=== PATIENT | female | born 1935 | race Caucasian/White ===

== ENCOUNTER 2017-06-21 16:50 | Inpatient (IN) | payer MEDICARE, BC ==
[2017-06-21] MEDS ORDERED: Dextrose 50% Abboject 50 ML SYRINGE SLOW IVP PRN (19:34)
[2017-06-21] MEDS ORDERED: hydrALAZINE 20 MG/ML VIAL SLOW IVP PRN (19:34)
[2017-06-21] MEDS ORDERED: Dextrose 5% in Water 1,000 ML IV PRN (19:34)
[2017-06-21] MEDS ORDERED: Enoxaparin Sodium 100 MG/ML SYRINGE SC SCH (20:00)
[2017-06-21] MEDS: Metoprolol Tartrate 25 MG TAB PO SCH (20:17)
[2017-06-21] MEDS: Famotidine 20 MG TAB PO SCH (20:17)
[2017-06-21] MEDS: Nitroglycerin 2% Ointment 1 INCH/1 GM Packet TOP SCH (20:17)
[2017-06-21 20:37] LABS: Troponin I 1.836 ng/mL (< 0.028)
[2017-06-21 21:28] VITALS: BMI 38.4
--- NOTE | 2017-06-21 21:34 | HP ---
DATE OF ADMISSION: 06/21/2017 CHIEF COMPLAINT: Weakness. HISTORY OF PRESENT ILLNESS: Ms. Mathew is a pleasant 82-year-old female, who went to the [facility] after having an episode of elevated blood pressure. She woke up this morning with a bifrontal throbbing headache and did not really feel good. [facility] arrived to see her and upon evaluation, she had an elevated blood pressure and felt that she had some facial droop, and noted was left to right side. She subsequently was recommended to go to the emergency department via EMS, but she refused and wait ed for her daughter get there about an hour and a half later. When her daughter arrived, her daught er noted no facial droop and whatever was there seemed to have resolved, but she continued to be hyp ertensive and was taken to the emergency department in [place]. There, she was found to have continued high blood pressure, but no facial droop. She had global wea kness, but no specific neurologic findings. Lab work there was largely unremarkable except for a tr oponin of 1.485, and she was sent here for further workup and evaluation. She denies any chest pain or difficulty breathing, no nausea, vomiting or diaphoresis, no fevers or chills, no cough or sputum production. Labs are otherwise unremarkable and she has been hypertensive in our ER. PAST MEDICAL HISTORY: 1. Vertigo, primarily turning head to the left. 2. Chronic back pain. 3. Diabetes mellitus type 2. 4. Hyperlipidemia. 5. Hypertension. 6. Degenerative joint disease. 7. Recurrent UTIs. PAST SURGICAL HISTORY: 1. Bilateral TKA left in 2006, right in 1997. She had a right total hip arthroplasty originally in 1988 in [place] and a revision in [address] Norris. She had bilateral shoulder replacement on the left in [address] Norris and on the right in 2007 she thinks in [place]. 2. Left femur fracture repair x2. Initial renetta was placed in 06/2016 with a replacement in 11/2016. Her last follow up in 05/2017 or 04/2017 showed a bone healing. 3. Hysterectomy, she thinks in 1970. HOME MEDICATIONS: 1. Amlodipine 5 mg p.o. daily. 2. Effexor 25 mg daily. 3. Pravachol 40 mg p.o. at bedtime. 4. Oxybutynin 5 mg p.o. t.i.d. 5. Lisinopril 20 mg p.o. at bedtime. 6. Gabapentin 300 mg p.o. at bedtime. 7. Tramadol 50 mg p.o. p.r.n. pain. 8. Aspirin 81 mg daily. 9. NPH insulin 40 units subcutaneously at bedtime and regular insulin 15 units before meals. ALLERGIES: IBUPROFEN causes GI bleeding. FAMILY HISTORY: Negative for clotting or bleeding disorder, no immune function. SOCIAL HISTORY: Negative for habits x3. She does live alone and is in 2010. REVIEW OF SYSTEMS: A 10-point review of systems was performed, negative for other systems except as stated as per HPI. CODE STATUS: Discussed with the patient. She does wish to be a FULL CODE. Her daughter is present who helps to make medical decisions, but is not officially medical power of compliance attorney. PHYSICAL EXAMINATION: VITAL SIGNS: Temperature 98.1, pulse 68, blood pressure 184/72, respiratory rate 18, satting 95% on room air. GENERAL: She is awake. She is alert. She is oriented x3. She is an obese white female, appears t o be in no distress. HEENT: Normocephalic, atraumatic. Pupils are equal and reactive bilaterally. Mucous membranes [address]. There is no visible lesion, no thrush. NECK: Supple. She has no lymphadenopathy, no JVD, no thyromegaly with normal carotid upstrokes. RESPIRATORY: Lungs are clear to auscultation bilaterally. She has no wheezes, no rales, no rhonchi . She has good air movement and symmetrical chest excursion. She has no prolonged expiratory phase . CARDIOVASCULAR: Normal S1, S2, no S3 or S4. She has a 2/6 systolic ejection murmur at the right up per sternal border. ABDOMEN: Obese, it is nontender, nondistended, no masses, no organomegaly. EXTREMITIES: No cyanosis, no clubbing, no edema with 2+ peripheral pulses. SKIN: Warm, moist, and well perfused. I do not appreciate any edema. She has no rashes or lesions . MUSCULOSKELETAL: Normal to inspection without any inflamed joints. Her previous orthopedic incisio ns are clean, dry, and intact and well healed. She has no palpable joint effusions. NEUROLOGIC: Cranial nerves II through XII are grossly intact without any focal neurologic defect. She has 5/5 strength. Normal speech and normal memory and recognition. LABORATORY DATA: A comprehensive metabolic profile showed normal electrolytes, bicarbonate 29, BUN 15, creatinine 0.87, and glucose 152. Calcium was 10.5, potassium was 4.2. Liver function within n ormal limits. White blood cell count of 8.3, hemoglobin of 14.9, hematocrit of 46.4 and platelets o f 209,000. INR was normal at 0.9. Urinalysis was negative. Chest x-ray showed no acute cardiopulmonary disease. Brain CT from the outside facility by my reading interpretation showed no acute cranial abnormalitie s. With limitations obvious of a noncontrast study. ASSESSMENT AND PLAN: 1. Hypertensive urgency: The patient with increased troponin, and possible neurologic deficits. I think this is all due to her hypertensive episode. I do not believe she had a transient ischemic a ttack. At this point, we will place her on cardioprotective medicines for her heart disease includi ng nitro paste, metoprolol, oxygen, and p.r.n. hydralazine for systolic pressure greater than 170. We will watch her pressure overnight and continue her regular home medications. 2. Non-ST elevation myocardial infarction: I think secondary to myocardial strain. Troponin is 1. 485, at the time that I saw her. Prior to being transferred to the floor, her repeat troponin was a lmost 1.8. We will consult Cardiology and keep her on cardioprotective medications and keep her blo od pressure controlled. 3. Possible facial droop: I believe this is likely secondary to hypertensive encephalopathy: Seem s to have resolved as her pressure was slightly improved and has not recurred with her systolic bloo d pressure of 184 here. She gets as high as systolic 201, we will work to keep her blood pressure c ontrolled tonight. 4. Diabetes mellitus type 2. We will hold her regular insulins for now, we will place her on slidi ng scale insulin at moderate dosing and will use Humalog 15 units subcutaneously before meals. We w ill hold her long-acting until we know what Cardiology's plan is. We will make her n.p.o. after mid night in anticipation of possible procedures. 5. Hypertension as above. 6. Hyperlipidemia, on Pravachol. We will continue. 7. Chronic vertigo: Currently asymptomatic, has not had a problem in some time. 8. Chronic back pain. 9. Deep venous thrombosis prophylaxis: The patient will be placed on full dose Lovenox for her non -ST elevation myocardial infarction and this is already anticoagulated. 10. We will place her on Pepcid b.i.d. for gastrointestinal prophylaxis.
[2017-06-21] MEDS: HYDROcodone/Acetaminophen 5/325 mg Tablet PO PRN (22:39)
[2017-06-22] MEDS ORDERED: Nitroglycerin 0.4 MG TAB (25 Tab Bottle) SL PRN (02:28)
[2017-06-22] MEDS ORDERED: Nitroglycerin 0.4 MG TAB (25 Tab Bottle) ONE (02:28)
[2017-06-22] MEDS: HYDROcodone/Acetaminophen 10/325 mg Tablet PO PRN (02:35)
[2017-06-22] MEDS: Nitroglycerin 2% Ointment 1 INCH/1 GM Packet TOP SCH ×2 (04:14→11:32)
[2017-06-22 05:45] LABS: #Basophils 0.1 thou/uL (0.0-0.2); #Eosinphils 0.3 thou/uL (0.0-0.7); #Lymphocytes 2.4 thou/uL (1.20-3.40); #Monocytes 0.6 thou/uL (0.11-0.59); #Neutrophils 3.5 thou/uL (1.40-6.50); %Basophils 1.1 % (0.0-1.0); %Eosinophils 4.3 % (0.0-10.0); %Lymphocytes 35.2 % (21.0-51.0); %Monocytes 8.2 % (0.0-10.0); Hematocrit 39.9 % (36.0-47.0); Mean Platelet Volume 6.9 fL (7.4-10.4); Red Blood Cell (RBC) Count 4.46 mill/uL (4.20-5.40); White Blood Cell (WBC) Count 6.8 thou/uL (4.8-10.8)
[2017-06-22 05:59] LABS: Anion Gap 9 mmol/L (10-20); BUN (Urea Nitrogen) 13 mg/dL (9.8-20.1); Calc. Creatinine Clearance 84 mL/min (70-130); Calcium 9.2 mg/dL (7.8-10.44); Carbon Dioxide 29 mmol/L (23-31); Chloride 102 mmol/L (98-107); Cholesterol 163 mg/dl (< 200 Desired); Estimated GFR-MDRD 69; LDL Cholesterol, Calculated 80 mg/dL; Magnesium 1.8 mg/dL (1.6-2.6)
[2017-06-22 06:19] LABS: Critical Call Chem Troponin I RESULT DECREASING; Troponin I 1.171 ng/mL (< 0.028)
[2017-06-22] MEDS: Metoprolol Tartrate 25 MG TAB PO SCH ×2 (07:54→20:33)
[2017-06-22] MEDS: Famotidine 20 MG TAB PO SCH ×2 (07:55→20:33)
[2017-06-22] MEDS ORDERED: Aspirin 325 mg Enteric Coated Tablet PO SCH (09:00)
[2017-06-22] MEDS ORDERED: Enoxaparin Sodium 100 MG/ML SYRINGE SC SCH (09:00)
[2017-06-22] MEDS: Insulin Regular 300 UNITS/3 ML VIAL SC PRN ×2 (11:41→17:13)
--- NOTE | 2017-06-22 12:01 | PDOC.PN ---
- Subjective Encounter Start Date: 06/22/17 Encounter Start Time: 11:45 Subjective: f/u for HTN emergency and ? TIA and NSTEMI. BP improved this am. -: Some nausea earlier but mainly hungry after not eating for 24h. Last -: stress test 10 years ago. - Objective Resuscitation Status: Resuscitation Status FULL:Full Resuscitation MAR Reviewed: Yes Vital Signs & Weight: Vital Signs (12 hours) Temp Pulse Resp BP Pulse Ox 06/22/17 11:45 98.1 F 55 L 20 128/58 L 93 L 06/22/17 09:37 53 L 06/22/17 08:50 98.1 F 75 20 167/72 H 97 06/22/17 07:49 98.1 F 75 20 192/79 H 97 06/22/17 04:02 98.0 F 61 16 131/60 97 Weight Weight 210 lb I&O: 06/21/17 06/22/17 06/23/17 06:59 06:59 06:59 Intake Total 720 Balance 720 Result Diagrams: 06/22/17 05:11 06/22/17 05:10 Additional Labs: Accuchecks 06/22/17 06/22/17 06/21/17 11:24 06:07 20:36 POC Glucose 272 H 248 H 126 H Radiology Reviewed by me: Yes (CT Brain - no acute process) EKG Reviewed by me: Yes (Tele - SR in 60's) Phys Exam - Physical Examination Constitutional: NAD flushed HEENT: PERRLA, oral pharynx no lesions Neck: no JVD, supple Respiratory: no wheezing, clear to auscultation bilateral Cardiovascular: RRR Gastrointestinal: soft, non-tender, no distention, positive bowel sounds Musculoskeletal: no edema, pulses present Neurological: normal sensation, moves all 4 limbs Psychiatric: A&O x 3 Skin: normal turgor, cap refill <2 seconds Dx/Plan (1) Hypertensive emergency Code(s): I16.1 - HYPERTENSIVE EMERGENCY Status: Acute Comment: Resolved, resume home BP regimen and monitor clinically (2) Hypertensive encephalopathy Code(s): I67.4 - HYPERTENSIVE ENCEPHALOPATHY Status: Acute Comment: Resolved , resume home BP meds (3) NSTEMI (non-ST elevated myocardial infarction) Code(s): I21.4 - NON-ST ELEVATION (NSTEMI) MYOCARDIAL INFARCTION Status: Acute Comment: ? NSTEMI vs demand state due to HTN emergency, consult Cardiology for recommendations, check 2D echo (4) Diabetes mellitus, type II, insulin dependent Code(s): E11.9 - TYPE 2 DIABETES MELLITUS WITHOUT COMPLICATIONS; Z79.4 - CUSTODIAL (CURRENT) USE OF INSULIN Status: Chronic Comment: Resume Lantus 40u sc HS, ISS, ADA - Plan clinical social worker, DVT proph w/SCDs Stable currently -: 2D echo today -: Await Cardiology evaluation -: D/C Nitro paste -: Resume Pravachol 40mg HS * D/C Lovenox
[2017-06-22] MEDS ORDERED: traMADol HCl 50 MG TAB PO PRN (12:04)
[2017-06-22 13:09] LABS: Critical Call Chem Troponin I RESULT DECREASING; Troponin I 0.861 ng/mL (< 0.028)
[2017-06-22] MEDS ORDERED: Sodium Chloride 0.9% 1,000 ML IV SCH (14:15)
[2017-06-22] MEDS ORDERED: Communication Order-Pharmacy FS SCH (14:15)
[2017-06-22] MEDS: Oxybutynin 5 MG TAB PO SCH ×2 (15:11→20:32)
[2017-06-22] MEDS: Ondansetron ODT 4 MG TAB PO PRN (17:12)
[2017-06-22] MEDS: Acetaminophen 325 MG TAB PO PRN (17:20)
[2017-06-22] MEDS: traZODone HCl 150 MG TAB PO SCH (20:32)
[2017-06-22] MEDS: Lisinopril 20 MG TAB PO SCH (20:33)
[2017-06-22] MEDS: Atorvastatin Calcium 20 MG TAB PO SCH (20:33)
[2017-06-22] MEDS: Gabapentin 300 MG CAP PO SCH (20:33)
[2017-06-22] MEDS: HYDROcodone/Acetaminophen 5/325 mg Tablet PO PRN (20:33)
[2017-06-22] MEDS: Insulin Detemir 100 UNITS/ML 40 UNITS in Pre-Filled Syringe SC SCH (20:34)
--- NOTE | 2017-06-22 20:47 | CON ---
DATE OF CONSULTATION: 06/22/2017 HISTORY OF PRESENT ILLNESS: Ashlee Mathew is an 82-year-old white female with multiple medical problems who just went home in February after second operation on fractured left leg. Yesterday, she stated that she woke up at 1:00 a.m. with a headache and later in the day felt good enough to do some work around the house such as washing and cleaning. She then around 11:00 a.m. again started feeling poorly. Her blood pressure was elevated with systolics in the 160s and her physical therapist came by and thought that she had facial droop and recommended she go to the emergency room. She did not until her daughter came many hours later. Her daughter did not think that she had a facial droop, but she continued to feel poorly, so she went to the emergency room in [place]. There, she was found to have an elevated troponin and she was transferred here for further evaluation. At no time yesterday did she have any chest pain, shortness of breath, nausea, vomiting or diaphoresis. She has never had any specific cardiac problems in the past from her recollection, although in looking through the medical record, she has been hospitalized for diuresis. PAST MEDICAL HISTORY: Hypertension, diabetes, hypercholesterolemia, degenerative joint disease with multiple joint replacements, recurrent UTIs, chronic back pain, vertigo. She has had 4 episodes of gastrointestinal bleeding requiring hospitalization all due to taking ibuprofen. She states she has undergone endoscopies in the past with no specific etiology being found. PAST SURGICAL HISTORY: Bilateral total knee replacements, bilateral shoulder replacements, right hip replacement x2. In 06/2016, she had a distal left femur fracture and underwent ORIF at [facility]. There apparently was poor healing and she underwent a revision in 11/2016 and this is now healed. She also has had hysterectomy. MEDICATIONS: Effexor 25 mg daily, Pravachol 40 mg at bedtime, amlodipine 5 mg daily, oxybutynin 5 mg t.i.d., lisinopril 20 mg at bedtime, gabapentin 300 at bedtime, tramadol 50 mg p.r.n., aspirin 81 daily, NPH insulin 40 units at bedtime and regular insulin 15 units before meals. ALLERGIES: IBUPROFEN causes gastrointestinal bleeding as noted above. SOCIAL HISTORY: She has never smoked. She does not drink. FAMILY HISTORY: One of her brothers had sudden in his 40s. REVIEW OF SYSTEMS: Twelve-point review of systems otherwise unremarkable. PHYSICAL EXAMINATION: VITAL SIGNS: Blood pressure 128/58 and pulse of 55. HEENT: PERRL. NECK: Supple. LUNGS: Chest is clear. CARDIAC: S1 and S2 normal, without any S3, S4 or murmurs. Carotid upstroke was normal without bruits. ABDOMEN: Obese. Normal bowel sounds. No tenderness. EXTREMITIES: Revealed no clubbing, cyanosis or edema. NEUROLOGIC: Grossly intact. SKIN: Warm and dry. LABORATORY AND IMAGING DATA: EKG reveals normal sinus rhythm, nonspecific ST-T wave changes, no acute changes are present. Hemoglobin 13.0, hematocrit 39.9, white count 6800, platelets 207,000. INR 0.9. Sodium 136, potassium 4.3, chloride 102, carbon dioxide 29, BUN 13, creatinine 0.80, glucose 126 up to 272. CK-MB 14.5. Troponin I peak is 1.836, cholesterol 163, triglycerides 238 , HDL 37 and LDL 80. IMPRESSION: 1. [id number] elevation myocardial infarction. This also may be related to demand ischemia from her hypertension; however, according to the patient, her blood pressure was not that significantly elevated. On arrival to [place] , her blood pressure was 187/68. 2. Probable hypertensive encephalopathy with questionable facial droop at one point in time. 3. Hypertension. 4. Hypercholesterolemia, poor control with LDL of 80 in a diabetic. 5. Diabetes. 6. Positive family history. 7. Obesity. 8. Multiple joint replacements. 9. History of gastrointestinal bleeding when on IBUPROFEN. She does take aspirin 81 chronically. RECOMMENDATIONS: It was recommended that Ms. Mathew undergo cardiac catheterization with her elevated troponin and elevated CK-MB and multiple cardiac risk factors. Risk of cardiac catheterization were discussed including , myocardial infarction, dye reaction, vascular injury, CVA, transfusion, limb loss, renal loss, etc. Also, risk of PTCA and stent were discussed including , myocardial infarction, emergent CABG, restenosis, stent thrombosis, vessel perforation, etc. We discussed bare metal stent versus drug- eluting stents. With her history of recurrent gastrointestinal bleeding, I would only place a bare metal stent to limit the amount of time that she has exposed to Plavix. Echocardiogram will also be performed. Change to Atorvastatin 20 for better cholesterol control. [facility]
[2017-06-22] MEDS ORDERED: Non-Formulary Item 1 EACH (Insulin Glargine,Hum.Rec.Anlog 40 UNIT) SQ SCH (21:00)
[2017-06-22] MEDS ORDERED: Pravastatin Sodium 40 MG TAB PO SCH (21:00)
[2017-06-23] MEDS: HYDROcodone/Acetaminophen 10/325 mg Tablet PO PRN ×2 (00:42→20:56)
[2017-06-23] MEDS: Ondansetron ODT 4 MG TAB PO PRN (00:58)
[2017-06-23] MEDS: Oxybutynin 5 MG TAB PO SCH ×3 (05:22→20:53)
[2017-06-23] MEDS: Metoprolol Tartrate 25 MG TAB PO SCH ×2 (05:22→20:53)
[2017-06-23] MEDS: Amlodipine 5 MG TAB PO SCH (05:22)
[2017-06-23] MEDS: Famotidine 20 MG TAB PO SCH ×2 (05:22→20:53)
[2017-06-23] MEDS: Venlafaxine HCl 25 MG TAB PO SCH (05:23)
[2017-06-23] MEDS ORDERED: Sodium Chloride 0.9% 1,000 ML IV SCH ×2 (06:00→11:15)
[2017-06-23] MEDS ORDERED: Lidocaine 1% (PF) 30 ML VIAL ONE (07:41)
[2017-06-23] MEDS ORDERED: Heparin 10,000 UNITS/1 ML VIAL ONE (07:43)
[2017-06-23] MEDS ORDERED: Fentanyl 100 MCG/2 ML VIAL ONE (10:33)
[2017-06-23] MEDS ORDERED: Midazolam HCl 2 mg/2 ml Vial ONE (10:33)
[2017-06-23] MEDS ORDERED: Protamine Sulfate 50 MG/5 ML VIAL ONE (10:46)
[2017-06-23] MEDS ORDERED: Nitroglycerin 0.4 MG TAB (25 Tab Bottle) SL PRN (11:05)
[2017-06-23] MEDS ORDERED: traMADol HCl 50 MG TAB PO PRN (11:05)
[2017-06-23] MEDS ORDERED: Acetaminophen/Codeine 30-300mg Tablet PO PRN ×2 (11:05)
[2017-06-23] MEDS ORDERED: Sodium Chloride 0.9% 200 ML IV PRN (11:15)
--- NOTE | 2017-06-23 14:51 | PDOC.PN ---
- Subjective Encounter Start Date: 06/23/17 Encounter Start Time: 14:35 Subjective: f/u NSTEMI with 3v CAD by [facility]. HTN encephalopathy resolved. Plan for CABG -: due to extent of CAD. No CP, SOB. - Objective Resuscitation Status: Resuscitation Status FULL:Full Resuscitation MAR Reviewed: Yes Vital Signs & Weight: Vital Signs (12 hours) Temp Pulse Resp BP BP Pulse Ox 06/23/17 11:05 97.9 F 60 18 133/63 133/63 94 L 06/23/17 08:45 98.2 F 56 L 16 95 06/23/17 08:00 98.2 F 56 L 16 134/60 95 06/23/17 05:22 80 150/67 H 06/23/17 05:15 98.1 F 80 18 150/67 H 93 L Weight Weight 210 lb I&O: 06/22/17 06/23/17 06/24/17 06:59 06:59 06:59 Intake Total 720 1440 Output Total 1 Balance 720 1439 Result Diagrams: 06/22/17 05:11 06/22/17 05:10 Additional Labs: Accuchecks 06/23/17 06/23/17 06/22/17 11:59 05:35 20:32 POC Glucose 171 H 240 H 229 H 06/22/17 17:06 POC Glucose 292 H Radiology Reviewed by me: Yes (2D echo - EF 55-60%, mod MR, diast dysfxn) EKG Reviewed by me: Yes (Tele - SR in 70's) Phys Exam - Physical Examination Constitutional: NAD HEENT: PERRLA, oral pharynx no lesions Neck: no JVD, supple Respiratory: no wheezing, clear to auscultation bilateral Cardiovascular: RRR Gastrointestinal: soft, non-tender, no distention, positive bowel sounds Musculoskeletal: no edema, pulses present Neurological: normal sensation, moves all 4 limbs Psychiatric: A&O x 3 Skin: normal turgor, cap refill <2 seconds Dx/Plan (1) Hypertensive emergency Code(s): I16.1 - HYPERTENSIVE EMERGENCY Status: Acute Comment: Resolved, resume home BP regimen and monitor clinically (2) Hypertensive encephalopathy Code(s): I67.4 - HYPERTENSIVE ENCEPHALOPATHY Status: Acute Comment: Resolved , resume home BP meds (3) NSTEMI (non-ST elevated myocardial infarction) Code(s): I21.4 - NON-ST ELEVATION (NSTEMI) MYOCARDIAL INFARCTION Status: Acute Comment: NSTEMI with [facility] showing 3v CAD, plan for CABG per Cardiology, ASA, Lipitor, B-jeanette (4) Diabetes mellitus, type II, insulin dependent Code(s): E11.9 - TYPE 2 DIABETES MELLITUS WITHOUT COMPLICATIONS; Z79.4 - CLINICAL LABORATORY DIRECTOR (CURRENT) USE OF INSULIN Status: Chronic Comment: Resume Lantus 40u sc HS, ISS, ADA - Plan plan discussed w/ family, social media editor, out of bed/ambulate, DVT proph w/SCDs Stable overall -: Continue ASA, Lipitor, Metoprolol -: Plan for CABG -: PT for mobilization -: AM lab: BMP * .
[2017-06-23] MEDS ORDERED: Communication Order-Pharmacy FS ONE (17:51)
[2017-06-23] MEDS: Insulin Regular 300 UNITS/3 ML VIAL SC PRN (17:53)
[2017-06-23] MEDS: traZODone HCl 150 MG TAB PO SCH (20:53)
[2017-06-23] MEDS: Atorvastatin Calcium 20 MG TAB PO SCH (20:53)
[2017-06-23] MEDS: Gabapentin 300 MG CAP PO SCH (20:53)
[2017-06-23] MEDS: Insulin Detemir 100 UNITS/ML 40 UNITS in Pre-Filled Syringe SC SCH (20:53)
[2017-06-23] MEDS: Lisinopril 20 MG TAB PO SCH (20:53)
--- NOTE | 2017-06-23 22:42 | CON ---
DATE OF CONSULTATION: 06/23/2017 REASON FOR CONSULTATION: Evaluation for coronary artery bypass surgery. PERTINENT HISTORY: The patient is an 82-year-old female who presented 2 days ago with hypertensive urgency at which time she ruled in for a [id number] elevation TN. Peak troponin I was 1.84. Transthoracic echo demonstrated preserved left ventricular systolic function with ejection fraction of 55% to 60 % with diastolic dysfunction, moderate MR, and mitral annular calcification. Today she underwent cardiac catheterization, which demonstrated severe 3-vessel disease. Ejection fraction at catheterization was 55% with LVEDP of 16. The patient was subsequently referred for coronary artery bypass surgery. PAST MEDICAL HISTORY: 1. Insulin-dependent diabetes. 2. Hypertension. 3. Dyslipidemia. 4. Obesity. 5. Peripheral neuropathy. 6. Vertigo. 7. Degenerative joint disease. 8. Depression. 9. Chronic back pain. 10. Urinary incontinence/frequent UTIs. 11. GI bleeds related to nonsteroidal anti-inflammatory use requiring multiple transfusions. PAST SURGICAL HISTORY: 1. Bilateral shoulder replacements. 2. Bilateral knee replacements. 3. Right hip replacement x2. 4. ORIF left femur fracture. 5. Hysterectomy. ALLERGIES: IBUPROFEN and PHENERGAN. SOCIAL HISTORY: Nonsmoker. Nondrinker. FAMILY HISTORY: Significant for a brother dying in his 40s of a massive TN. REVIEW OF SYSTEMS: No history of kidney or liver disease or claudication. The patient, however, does not walk to any substantial degree and does require a walker for assistance with ambulation. Prior to her presentation, she had no prior history of angina or TN. LABORATORY AND X-RAY: Hemoglobin 13.0. Platelet count 207,000. Creatinine 0.80. Chest x-ray demonstrates an elevated right hemidiaphragm with normal appearing heart size. CURRENT MEDICATIONS: Insulin detemir 40 units at bedtime, Norvasc 5 mg daily, aspirin 81 mg daily, Lipitor 20 mg at bedtime, Pepcid 20 mg b.i.d., gabapentin 300 mg q.p.m., lisinopril 20 mg at bedtime, metoprolol 25 mg b.i.d., oxybutynin 5 mg t.i.d., Effexor 25 mg daily, and trazodone 150 mg at bedtime. PHYSICAL EXAMINATION: VITAL SIGNS: Height 5 feet 2 inches, weight 210 pounds, blood pressure 140/63, heart rate 58, temperature 98.3. GENERAL: Obese female, in no acute distress. She is fully oriented. HEENT: Grossly unremarkable. NECK: Without JVD or adenopathy. LUNGS: Clear with good inspiratory effort. HEART: Sinus bradycardia without murmur or rub. ABDOMEN: Soft and nontender, without palpable mass. EXTREMITIES: Without appreciable edema. VASCULAR: Palpable radial, femoral, and popliteal pulses bilaterally. No carotid bruits were appreciated. Abdominal aorta is nonpalpable. NEUROLOGIC: No focal deficits. IMPRESSION: [id number] elevation myocardial infarction, severe three- vessel coronary artery disease, and preserved left ventricular systolic function. RECOMMENDATIONS: Coronary artery bypass surgery to which the patient is in agreement following discussion with her referring concrete bucket loader and myself. The indications, benefits, alternatives, and risks were explained in detail to the patient and present family members. At this time, all questions were answered. Case will be tentatively scheduled for tomorrow morning pending a final family tele-conference this evening. CLAUDY
[2017-06-24] MEDS ORDERED: Vancomycin HCl 1.5 GM in Sodium Chloride 0.9% 250 ML 300 ML IVPB SCH (07:00)
[2017-06-24] MEDS ORDERED: CEFAZOLIN/Water 2 GM/20 ML SYRINGE SLOW IVP SCH (07:30)
[2017-06-24] MEDS ORDERED: CEFAZOLIN 2 GM in Sodium Chloride 0.9% 100 ML IVPB SCH (07:30)
--- NOTE | 2017-06-24 08:42 | PDOC.EVN ---
Event Note - Event Note Event Note: RN called - Pt has diarrhea - will add stool studies.
[2017-06-24] MEDS: Venlafaxine HCl 25 MG TAB PO SCH (08:56)
[2017-06-24] MEDS: Oxybutynin 5 MG TAB PO SCH ×3 (08:56→21:24)
[2017-06-24] MEDS: Famotidine 20 MG TAB PO SCH ×2 (08:57→21:23)
[2017-06-24] MEDS: Metoprolol Tartrate 25 MG TAB PO SCH ×2 (08:57→21:24)
[2017-06-24] MEDS: Amlodipine 5 MG TAB PO SCH (08:57)
[2017-06-24] MEDS ORDERED: Loperamide HCl 2 MG CAP PO PRN (09:08)
[2017-06-24] MEDS ORDERED: Loperamide HCl 2 MG CAP PO SCH (09:15)
[2017-06-24] MEDS: Acetaminophen 325 MG TAB PO PRN (09:18)
[2017-06-24] MEDS ORDERED: Metoprolol Tartrate 25 MG TAB PO SCH ×2 (13:27→13:30)
[2017-06-24] MEDS ORDERED: Lisinopril 20 MG TAB PO SCH (13:27)
[2017-06-24] MEDS ORDERED: Amlodipine 5 MG TAB PO SCH ×2 (13:27→13:30)
[2017-06-24] MEDS ORDERED: Lisinopril 5 MG TAB PO SCH ×2 (13:30→21:00)
--- NOTE | 2017-06-24 13:30 | PDOC.PN ---
- Subjective Encounter Start Date: 06/24/17 Encounter Start Time: 13:30 Subjective: f/u for CAD and TIA. Pt opting for med mgmt instead of CABG. Nsg reports -: diarrhea x multiple episodes this am. c/o some abd cramping and bloating. - Objective Resuscitation Status: Resuscitation Status DNR:Do Not Resuscitate MAR Reviewed: Yes Vital Signs & Weight: Vital Signs (12 hours) Temp Pulse Pulse Pulse Pulse Resp BP 06/24/17 12:45 49 L 06/24/17 11:49 97.8 F 45 L 16 06/24/17 11:46 44 L 06/24/17 09:36 53 L 56 L 54 L 100/50 L 06/24/17 08:57 60 06/24/17 08:00 97.5 F L 60 16 06/24/17 07:56 97.5 F L 60 16 06/24/17 04:00 97.9 F 58 L 12 BP BP BP Pulse Ox 06/24/17 12:45 100/49 L 06/24/17 11:49 75/37 L 92 L 06/24/17 11:46 82/43 L 06/24/17 09:36 105/53 L 107/51 L 06/24/17 08:57 06/24/17 08:00 94 L 06/24/17 07:56 127/62 94 L 06/24/17 04:00 99/50 L 95 Weight Weight 209 lb 12.8 oz I&O: 06/23/17 06/24/17 06/25/17 06:59 06:59 06:59 Intake Total 1440 2580 600 Output Total 1 Balance 1439 2580 600 Result Diagrams: 06/22/17 05:11 06/22/17 05:10 Additional Labs: Accuchecks 06/24/17 06/24/17 06/23/17 11:11 05:49 20:50 POC Glucose 165 H 94 236 H 06/23/17 16:53 POC Glucose 185 H EKG Reviewed by me: Yes (Tele - Sinus bradycardia in 40's) Phys Exam - Physical Examination Constitutional: NAD HEENT: PERRLA, oral pharynx no lesions Neck: no JVD, supple Respiratory: no wheezing, clear to auscultation bilateral Cardiovascular: RRR obese Gastrointestinal: soft, non-tender, no distention, positive bowel sounds Musculoskeletal: no edema, pulses present Neurological: normal sensation, moves all 4 limbs Psychiatric: A&O x 3 Skin: normal turgor, cap refill <2 seconds Dx/Plan (1) Hypertensive emergency Code(s): I16.1 - HYPERTENSIVE EMERGENCY Status: Acute Comment: Resolved, resume home BP regimen and monitor clinically (2) Hypertensive encephalopathy Code(s): I67.4 - HYPERTENSIVE ENCEPHALOPATHY Status: Acute Comment: Resolved , resume home BP meds (3) NSTEMI (non-ST elevated myocardial infarction) Code(s): I21.4 - NON-ST ELEVATION (NSTEMI) MYOCARDIAL INFARCTION Status: Acute Comment: NSTEMI with [facility] showing 3v CAD, ASA, Lipitor, B-jeanette, opting for med mgmt (4) Diabetes mellitus, type II, insulin dependent Code(s): E11.9 - TYPE 2 DIABETES MELLITUS WITHOUT COMPLICATIONS; Z79.4 - ASSISTED (CURRENT) USE OF INSULIN Status: Chronic Comment: Resume Lantus 40u sc HS, ISS, ADA (5) Hypotension Status: Acute Comment: ? etiology, potential iatrogenic or cardiogenic due to severe 3v CAD, decrease BP regimen, monitor clinical response (6) Sinus bradycardia Code(s): R00.1 - BRADYCARDIA, UNSPECIFIED Status: Acute Comment: Decrease Metoprolol 12.5mg BID, avoid AV kymberly blocking agents (7) Clostridium difficile diarrhea Code(s): A04.72 - ENTEROCOLITIS D/T CLOSTRIDIUM DIFFICILE, NOT SPCF RECUR Status: Suspected Comment: Start Flagyl 250mg TID, monitor clinically, start Florastor 250mg daily - Plan continue antibiotics, PT/OT, group social worker, out of bed/ambulate, DVT proph w/ SCDs Stable currently -: Start Flagyl 250mg TID -: Florastor 250mg daily -: Decrease dosing of all BP meds due hypotension and bradycardia -: Palliative care consult * AM lab: BMP, CBC
[2017-06-24] MEDS: metroNIDAZOLE 250 MG TAB PO SCH ×2 (14:38→21:24)
[2017-06-24] MEDS: Gabapentin 300 MG CAP PO SCH (21:23)
[2017-06-24] MEDS: Atorvastatin Calcium 20 MG TAB PO SCH (21:23)
[2017-06-24] MEDS: traZODone HCl 150 MG TAB PO SCH (21:24)
[2017-06-24] MEDS: Insulin Detemir 100 UNITS/ML 40 UNITS in Pre-Filled Syringe SC SCH (21:24)
[2017-06-24] MEDS: HYDROcodone/Acetaminophen 10/325 mg Tablet PO PRN (21:25)
[2017-06-25 04:46] LABS: Anion Gap 6 mmol/L (10-20); BUN (Urea Nitrogen) 31 mg/dL (9.8-20.1); Calc. Creatinine Clearance 47 mL/min (70-130); Calcium 8.9 mg/dL (7.8-10.44); Carbon Dioxide 33 mmol/L (23-31); Chloride 103 mmol/L (98-107); Estimated GFR-MDRD 35
[2017-06-25 05:00] LABS: Hematocrit 36.1 % (36.0-47.0); Mean Platelet Volume 6.9 fL (7.4-10.4); Neutrophil 55 % (42-75); Reactive Lymphocytes 2 % (0-10); Red Blood Cell (RBC) Count 4.02 mill/uL (4.20-5.40); White Blood Cell (WBC) Count 6.9 thou/uL (4.8-10.8)
[2017-06-25] MEDS: Insulin Regular 300 UNITS/3 ML VIAL SC PRN ×3 (05:36→17:20)
[2017-06-25] MEDS: Oxybutynin 5 MG TAB PO SCH ×2 (08:36→15:41)
[2017-06-25] MEDS: Venlafaxine HCl 25 MG TAB PO SCH (08:36)
[2017-06-25] MEDS: Famotidine 20 MG TAB PO SCH (08:37)
[2017-06-25] MEDS: metroNIDAZOLE 250 MG TAB PO SCH ×2 (08:37→15:41)
[2017-06-25] MEDS: Metoprolol Tartrate 25 MG TAB PO SCH (08:37)
[2017-06-25] MEDS ORDERED: Amlodipine 5 MG TAB PO SCH (09:00)
[2017-06-25] MEDS ORDERED: Saccharomyces boulardii 250 MG CAP PO SCH (09:00)
--- NOTE | 2017-06-25 10:10 | PDOC.PN ---
- Subjective Encounter Start Date: 06/25/17 Encounter Start Time: 07:00 Pt seen for followup re: NSTEMI. Denies chest pain, shortness of breath, fevers or chills. No diarrhea. - Objective Resuscitation Status: Resuscitation Status DNR:Do Not Resuscitate MAR Reviewed: Yes Vital Signs & Weight: Vital Signs (12 hours) Temp Pulse Resp BP BP Pulse Ox 06/25/17 08:36 60 137/60 06/25/17 07:18 97.9 F 60 18 137/60 93 L 06/25/17 04:15 98.0 F 52 L 18 98/53 L 95 06/24/17 23:33 98.0 F 61 16 100/49 L 94 L Weight Weight 209 lb 12.8 oz I&O: 06/24/17 06/25/17 06/26/17 06:59 06:59 06:59 Intake Total 2580 1390 Balance 2580 1390 Result Diagrams: 06/25/17 04:10 06/25/17 04:10 Additional Labs: Accuchecks 06/25/17 06/24/17 06/24/17 05:35 21:00 17:05 POC Glucose 163 H 262 H 153 H 06/24/17 11:11 POC Glucose 165 H EKG Reviewed by me: Yes (Tele: NSR) Phys Exam - Physical Examination Obese HEENT: moist MMs, oral pharynx no lesions Neck: supple Respiratory: clear to auscultation bilateral Cardiovascular: RRR Gastrointestinal: soft, non-tender Musculoskeletal: pulses present, edema present Neurological: moves all 4 limbs Psychiatric: normal affect Skin: no rash Dx/Plan (1) NSTEMI (non-ST elevated myocardial infarction) Code(s): I21.4 - NON-ST ELEVATION (NSTEMI) MYOCARDIAL INFARCTION Status: Acute (2) 3-vessel coronary artery disease Status: Acute (3) Physical deconditioning Code(s): R53.81 - OTHER MALAISE Status: Acute (4) Diabetes mellitus, type II, insulin dependent Code(s): E11.9 - TYPE 2 DIABETES MELLITUS WITHOUT COMPLICATIONS; Z79.4 - CORRECTION (CURRENT) USE OF INSULIN Status: Chronic (5) Clostridium difficile diarrhea Code(s): A04.72 - ENTEROCOLITIS D/T CLOSTRIDIUM DIFFICILE, NOT SPCF RECUR Status: Suspected - Plan continue antibiotics, PT/OT, out of bed/ambulate * . Pt opting for med mgmt of CAD. Continue aspirin, statin, beta jeanette and ACEI. Continue accuchecks, insulin sliding scale. Continue metronidazole. Ambulate pt. Likely for SNU /Inpt Rehab. Review of Systems - Review of Systems Constitutional: Weakness Cardiovascular: negative: Chest Pain, Palpitations, Orthopnea, Paroxysmal Noc. Dyspnea, Edema, Light Headedness Gastrointestinal: negative: Nausea, Vomiting, Abdominal Pain, Diarrhea, Constipation, Melena, Hematochezia - Medications/Allergies Allergies/Adverse Reactions: Allergies Allergy/AdvReac Type Severity Reaction Status Date / Time ibuprofen Allergy Verified 06/21/17 21:26 promethazine [From Phenergan] Allergy Verified 06/21/17 21:26 Medications: Current Medications Acetaminophen (Tylenol) 650 mg PO Q4H PRN PRN Reason: Headache/Fever or Pain Last Admin: 06/24/17 09:18 Dose: 650 mg Acetaminophen/Codeine Phosphate (Tylenol #3) 1 tab PO Q4H PRN PRN Reason: Mild Pain (1-3) Acetaminophen/Codeine Phosphate (Tylenol #3) 2 tab PO Q4H PRN PRN Reason: Moderate Pain (4-6) Hydrocodone Bitart/Acetaminophen (Lincoln 10/325) 1 tab PO Q4H PRN PRN Reason: Severe Pain (7-10) Last Admin: 06/24/17 21:25 Dose: 1 tab Amlodipine Besylate (Norvasc) 2.5 mg PO DAILY [facility] Last Admin: 06/25/17 08:36 Dose: 2.5 mg Aspirin (Aspirin Chewable) 81 mg PO DAILY [facility] Last Admin: 06/25/17 08:36 Dose: 81 mg Atorvastatin Calcium (Lipitor) 20 mg PO HS [facility] Last Admin: 06/24/17 21:23 Dose: 20 mg Dextrose/Water (Dextrose 50%) 25 gm SLOW IVP PRN PRN PRN Reason: Hypoglycemia Famotidine (Pepcid) 20 mg PO BID [facility] Last Admin: 06/25/17 08:37 Dose: 20 mg Gabapentin (Neurontin) 300 mg PO QPM [facility] Last Admin: 06/24/17 21:23 Dose: 300 mg Glucagon (Glucagon) 1 mg IM PRN PRN PRN Reason: Hypoglycemia Hydralazine HCl (Apresoline) 10 mg SLOW IVP Q2H PRN PRN Reason: sbp > 170 Dextrose/Water (D5w) 1,000 mls @ 0 mls/hr IV .Q0M PRN; As Directed PRN Reason: Hypoglycemia Insulin Detemir 40 units/ (Miscellaneous Medication) 0.4 mls @ 0 mls/hr SC [facility] Last Admin: 06/24/17 21:24 Dose: 0.4 mls Sodium Chloride (Normal Saline 0.9%) 200 mls @ 0 mls/hr IV ONE PRN; As Directed PRN Reason: Bolus PRN SBP < 90 mm Hg Stop: 06/26/17 11:16 Insulin Human Regular (Humulin R) 0 units SC .MODERATE SLIDING SC PRN PRN Reason: Moderate Correctional Scale Last Admin: 06/25/17 05:36 Dose: 2 unit Lisinopril (Zestril) 5 mg PO [facility] Last Admin: 06/24/17 21:23 Dose: 5 mg Loperamide HCl (Imodium) 2 mg PO QIDPRN PRN PRN Reason: Diarrhea/Loose Stools Last Admin: 06/24/17 14:40 Dose: 2 mg Metoprolol Tartrate (Lopressor) 12.5 mg PO BID [facility] Last Admin: 06/25/17 08:37 Dose: 12.5 mg Metronidazole (Flagyl) 250 mg PO TID [facility] Last Admin: 06/25/17 08:37 Dose: 250 mg Nitroglycerin (Nitrostat) 0.4 mg SL Q5MIN PRN PRN Reason: Chest Pain Ondansetron HCl (Zofran Odt) 4 mg PO Q6H PRN PRN Reason: Nausea/Vomiting Last Admin: 06/23/17 00:58 Dose: 4 mg Oxybutynin Chloride (Ditropan) 5 mg PO TID [facility] Last Admin: 06/25/17 08:36 Dose: 5 mg Saccharomyces Boulardii (Florastor) 250 mg PO DAILY [facility] Last Admin: 06/25/17 08:36 Dose: 250 mg Sodium Chloride (Flush - Normal Saline) 10 ml IVF PRN PRN PRN Reason: Saline Flush Last Admin: 06/25/17 08:36 Dose: 10 ml Tramadol HCl (Ultram) 50 mg PO Q6H PRN PRN Reason: Moderate Pain (4-6) Trazodone HCl (Desyrel) 150 mg PO [facility] Last Admin: 06/24/17 21:24 Dose: 150 mg Venlafaxine HCl (Effexor) 25 mg PO DAILY [facility] Last Admin: 06/25/17 08:36 Dose: 25 mg
[2017-06-25 15:49] VITALS: BP 115/56; TEMP 97.9
[2017-06-25] MEDS: Acetaminophen 325 MG TAB PO PRN (15:56)
[2017-06-25] MEDS ORDERED: Sodium Chloride 0.9% 1,000 ML IV SCH (16:00)
--- NOTE | 2017-06-25 19:14 | DIS ---
DATE OF ADMISSION: 06/21/2017 DATE OF DISCHARGE: 06/25/2017 PRIMARY CARE PHYSICIAN: Manjinder Felix M.D. DISCHARGE DIAGNOSES: 1. Non-ST elevation myocardial infarction. 2. Three-vessel coronary artery disease on cardiac catheterization. 3. Probable Clostridium difficile diarrhea. 4. Acute renal insufficiency secondary to diarrhea. CONDITION OF PATIENT AT THE TIME OF DISCHARGE: Stable. I assessed Ms. Mathew on the day of dischar . Please refer to my daily hospitalist's progress note for further information regarding this fac e to [id number] encounter. HOSPITAL COURSE: Ms. Mathew is a pleasant 82-year-old lady who was admitted to [facility] on 06/25/2017 for hypertensive emergency and non-ST elevation myocardial infarction. She was seen by Cardiology Service, Dr. Flores. She underwent cardiac catheterization on 06/23/20, which showed 3-vessel coronary artery disease with mildly impaired ventricular function. She al so had an echocardiogram on 06/22/2017, which showed ejection fraction at 55-60%. She was seen by [facility] Surgery. The patient did not want to have surgery at this time, I elected for medical management. On 06/24/2017, she had diarrhea. Stool studies showed that Clostridium difficile antigen was positi ve, toxin negative. However, she also had an elevated lactoferrin, was therefore started on metroni dazole. On 06/25/2017, her creatinine increased to 1.44 from 0.80 on 06/22/2017. She is receiving intraveno us fluids. She has been accepted for further management at assisted unit at [facility]. She will be continued on intravenous fluids. Her creatinine will need to be checked in 1-2 days. I discuss ed the case with the accepting physician at [facility], and he has kindly accepted the patient for admis raffi to [facility]. DISCHARGE MEDICATIONS: Tylenol 650 mg every 4 hours as needed, Tylenol #3 one tablet every 4 hours as needed, Norvasc 2.5 mg daily, aspirin 81 mg daily, Lipitor 20 mg at bedtime, gabapentin 300 mg in the evening, Lantus insulin 40 units every evening, Novolin R 5 units 3 times a day, lisinopril 20 mg at bedtime, Lopressor 12.5 mg 2 times a day, Nitrostat 0.4 mg sublingually every 5 minutes as nee ded, Zofran 4 mg every 6 hours as needed, oxybutynin 5 mg 3 times a day, Florastor 250 mg daily, sod ium chloride infusion 75 mL per hour, tramadol 50 mg 1 tablet every 4 hours as needed, Effexor 25 mg daily, Flagyl 500 mg 3 times a day, and trazodone 150 mg at bedtime. On the day of discharge, she has sodium 138, potassium 4.1, blood urea nitrogen 31, creatinine 1.44, white count 6900, hemoglobin 11.8, and platelet count 186,000. During this hospitalization, she fonseca d triglycerides 230, cholesterol 163, LDL cholesterol 80, and HDL cholesterol 37. Many thanks for allowing me to participate in your patient's care. Please feel free to contact me w ith any questions or concerns. DISCHARGE DESTINATION: [facility]. TOTAL AMOUNT OF TIME SPENT COORDINATING THIS DISCHARGE: 38 minutes.
[2017-06-26] MEDS ORDERED: Enoxaparin Sodium 40 MG/0.4 ML SYRINGE SC SCH (09:00)
== END 2017-06-25 18:04 | DRG 281 ==
LOC: ERS 16:50 → 2SE 17:40
PROVIDERS: ADMIT Internal Medicine Infectious Disease; ATTEND Internal Medicine Infectious Disease
PROC: 4A023N7 Measurement of Cardiac Sampling and Pressure, Left Heart, Percutaneous Approach (ICD-10-PCS; principal; 2017-06-24)
PROC: B2111ZZ Fluoroscopy of Multiple Coronary Arteries using Low Osmolar Contrast (ICD-10-PCS; 2017-06-24)
PROC: B2151ZZ Fluoroscopy of Left Heart using Low Osmolar Contrast (ICD-10-PCS; 2017-06-24)
DX: I21.4 Non-ST elevation (NSTEMI) myocardial infarction (principal); A04.72 Enterocolitis due to Clostridium difficile, not specified as recurrent; I67.4 Hypertensive encephalopathy; I16.1 Hypertensive emergency; I16.0 Hypertensive urgency; I25.10 Atherosclerotic heart disease of native coronary artery without angina pectoris; M54.9 Dorsalgia, unspecified; G89.29 Other chronic pain; E66.9 Obesity, unspecified; Z68.38 Body mass index [BMI] 38.0-38.9, adult; E78.00 Pure hypercholesterolemia, unspecified; Z87.440 Personal history of urinary (tract) infections; Z96.653 Presence of artificial knee joint, bilateral; Z96.612 Presence of left artificial shoulder joint; Z96.611 Presence of right artificial shoulder joint; Z88.8 Allergy status to other drugs, medicaments and biological substances; Z79.4 Long term (current) use of insulin; Z79.82 Long term (current) use of aspirin; Z66 Do not resuscitate; Z82.49 Family history of ischemic heart disease and other diseases of the circulatory system
CPT/HCPCS: 36415; 36416; 80048; 80061; 82553; 83630; 83735; 84484; 85007; 85025; 85027; 85347; 86850; 86900; 86901; 87015; 87045; 87046; 87081; 87324; 87328; 87329; 87449; 87899; 93005; 93010; 93306; 93458; 93798; 99152; C1769; G8978-GP-CK; G8979-GP-CI; J1644; J1650; J1815; J2001; J2250; J2720; J3010; J3370; J7050; Q0162

== ENCOUNTER 2017-07-29 18:43 | Inpatient (IN) | payer MEDICARE, BC ==
[~2017-07-29 18:43] MED LIST: ISOVUE-370 76%-LOCM 1 ML ONE
[2017-07-29 19:30] LABS: #Lymphocytes 0.5 thou/uL (1.20-3.40); #Monocytes 0.5 thou/uL (0.11-0.59); #Neutrophils 11.3 thou/uL (1.40-6.50); %Basophils 0.2 % (0.0-1.0); %Eosinophils 0.1 % (0.0-10.0); %Lymphocytes 3.7 % (21.0-51.0); %Monocytes 3.7 % (0.0-10.0); Hematocrit 42.5 % (36.0-47.0); Mean Platelet Volume 7.6 fL (7.4-10.4); Red Blood Cell (RBC) Count 4.61 mill/uL (4.20-5.40); White Blood Cell (WBC) Count 12.3 thou/uL (4.8-10.8)
--- NOTE | 2017-07-29 19:43 | RAD ---
CHEST ONE VIEW: History: Fever, chills. Comparison: 06-21-17 FINDINGS: Lungs are without focal airspace consolidation, pneumothorax, or effusion. 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 Cardiac silhouette and mediastinal contours are within normal mays its. IMPRESSION: No acute intrathoracic abnormality. POS: [facility]
[2017-07-29 19:48] LABS: Lactic Acid - Sepsis 2.5 mmol/L (0.5-2.2)
[2017-07-29 19:52] LABS: ALT (SGPT) 15 U/L (8-55); AST (SGOT) 31 U/L (5-34); Alkaline Phosphatase 82 U/L (40-150); Anion Gap 16 mmol/L (10-20); BUN (Urea Nitrogen) 22 mg/dL (9.8-20.1); Bilirubin, Total 0.8 mg/dL (0.2-1.2); Calc. Creatinine Clearance 0 mL/min (70-130); Calcium 9.7 mg/dL (7.8-10.44); Carbon Dioxide 25 mmol/L (23-31); Chloride 97 mmol/L (98-107); Estimated GFR-MDRD 39; Globulin 3.4 g/dL (2.4-3.5); Protein, Total 6.9 g/dL (6.0-8.3)
--- NOTE | 2017-07-29 21:41 | CT ---
CONTRAST ENHANCED ABDOMEN AND PELVIC CT: Indication: Left flank pain with fever, chills, and urinary frequency. Comparison: 08-20-15 FINDINGS: Limited evaluation due to streak artifact obscuring portions of the low abdomen and pelvis from a rig ht hip prosthesis. There is no overt hydronephrosis or hydroureter. No discrete urinary tract calculu s identified. Small hypodensities of the left renal parenchyma are too small to further characterize. There is bilateral perinephric fat stranding, nonspecific. Bowel is incompletely assessed without en teric contrast. There is a partially contracted gallbladder without associated inflammation. Splenic granulomatous calcifications are seen. There is age related atrophy of the pancreas. There is nonspec ific subpleural reticular nodularity of the right lung base, which is stable, favoring a benign proce ss such as parenchymal scar, given two years of stability. Additional subpleural punctate nodularitie s are also stable. Scattered vascular disease is present. Diffuse osseous degenerative findings are present including multilevel areas of sclerosis of the imag ed spine. IMPRESSION: 1. No evidence of urolithiasis or obstructive uropathy. There is limited assessment of the lower abdo men and pelvis due to streak artifact from right hip hardware. 2. Additional findings as above. POS: [facility]
--- NOTE | 2017-07-29 23:15 | PDOC.EVN ---
Event Note - Event Note Event Note: [id number] H&P DICTATED 1. Abdominal pain 2. UTI 3. DM type 2 4. HTN Plan: see orders
[2017-07-29] MEDS ORDERED: Ondansetron ODT 4 MG TAB SL PRN (23:31)
[2017-07-29] MEDS ORDERED: Acetaminophen 325 MG TAB PO PRN (23:31)
[2017-07-29] MEDS ORDERED: Sodium Chloride 0.9% 1,000 ML IV SCH (23:31)
[2017-07-29] MEDS ORDERED: Ondansetron HCl/PF 4 MG/2 ML Vial IVP PRN (23:31)
[2017-07-30] MEDS ORDERED: Dextrose 50% Abboject 50 ML SYRINGE SLOW IVP PRN (00:10)
[2017-07-30] MEDS ORDERED: HumaLOG 300 UNITS/3 ML VIAL SC PRN (00:10)
[2017-07-30] MEDS ORDERED: Dextrose 5% in Water 1,000 ML IV PRN (00:10)
[2017-07-30] MEDS: Piperacillin/Tazobactam 3.375 GM in Sodium Chloride 0.9% 100 ML IVPB SCH ×4 (01:03→20:58)
[2017-07-30] MEDS: Acetaminophen 325 MG TAB PO PRN ×4 (01:04→20:47)
[2017-07-30] MEDS: Sodium Chloride 0.9% 1,000 ML IV SCH ×3 (01:05→21:01)
[2017-07-30 03:11] VITALS: BMI 38.5
[2017-07-30] MEDS: traMADol HCl 50 MG TAB PO PRN ×2 (04:43→19:20)
[2017-07-30 05:25] LABS: #Eosinphils 0.1 thou/uL (0.0-0.7); #Lymphocytes 1.3 thou/uL (1.20-3.40); #Monocytes 1.2 thou/uL (0.11-0.59); #Neutrophils 10.9 thou/uL (1.40-6.50); %Basophils 0.2 % (0.0-1.0); %Eosinophils 0.4 % (0.0-10.0); %Lymphocytes 9.6 % (21.0-51.0); %Monocytes 8.7 % (0.0-10.0); Hematocrit 35.5 % (36.0-47.0); Red Blood Cell (RBC) Count 3.85 mill/uL (4.20-5.40); White Blood Cell (WBC) Count 13.4 thou/uL (4.8-10.8)
[2017-07-30 05:46] LABS: Anion Gap 9 mmol/L (10-20); BUN (Urea Nitrogen) 24 mg/dL (9.8-20.1); Calc. Creatinine Clearance 57 mL/min (70-130); Calcium 8.6 mg/dL (7.8-10.44); Carbon Dioxide 26 mmol/L (23-31); Chloride 101 mmol/L (98-107); Estimated GFR-MDRD 44
--- NOTE | 2017-07-30 06:24 | HP ---
DATE OF ADMISSION: 07/29/2017 CHIEF COMPLAINT: Abdominal pain. HISTORY OF PRESENT ILLNESS: The patient is an 82-year-old female with past medical history of diabet es mellitus type 2, hypertension, degenerative disk disease, recurrent back pain who came to the ER c omplaining of abdominal pain. Abdominal pain started all of sudden for the past 3 days, in the left side of abdomen, constant 10/10, improves with some pain medication, crampy kind of pain. Associated with some nausea and vomiting also. The patient also complains of decreased urine output last few d ays. She complains of some chills. Denies any dysuria. Denies any chest pain, denies any trouble b reathing, denies any syncope, denies any palpitations. Complains of fatigue. Denies any headache. Denies any dizziness. PAST MEDICAL HISTORY: As per HPI. PAST SURGICAL HISTORY: Shoulder surgery, hip surgery, hand surgery. MEDICATIONS: Reviewed. ALLERGIES: IBUPROFEN, PHENERGAN. SOCIAL/FAMILY HISTORY: Positive for . REVIEW OF SYSTEMS: CONSTITUTIONAL: Positive for fatigue. EYES: No vision problems. ENT: Ears, no hearing loss. NECK: Denies any neck pain. CARDIOVASCULAR: Denies any chest pain. RESPIRATORY: Denies any cough or sputum. GASTROINTESTINAL: Positive for abdominal pain. Positive for nausea, vomiting. GENITOURINARY: Positive for decreased micturition. INTEGUMENT: Denies any rash. NEUROLOGIC: Denies syncope. PSYCHIATRIC: Denies anxiety. MUSCULOSKELETAL: Denies any . All other review of systems are reviewed and are negative. PHYSICAL EXAMINATION: CONSTITUTIONAL/VITAL SIGNS: At the time of H&P performed, blood pressure is 130/70, afebrile, pulse ox 97%. GENERAL: Patient appears comfortable. HEENT: Pupils equal, round. Ears patent. Nose normal. Ears normal Teeth intact. Tongue is mois t. NECK: Supple, no JVD. CARDIOVASCULAR SYSTEM: S1, S2 present. Regular rate and rhythm, no murmurs, no rubs, no gallops. RESPIRATORY SYSTEM: No wheezing, no rhonchi. Breath sounds bilaterally. GASTROINTESTINAL: Distended, abdomen is tender, soft, mild left side tender to palpation. No guardi ng, no rebound tenderness. MUSCULOSKELETAL: No edema. CRANIAL NERVE SYSTEM: Awake, follows commands. Strength intact, sensory intact. PSYCHIATRIC: Normal mood of this time. INTEGUMENT: No rashes seen. LABORATORY DATA: At the time of H&P performed, white count 12.3, hemoglobin 13.9, platelet count 202 . BMP showed sodium 133, potassium 4.5, chloride 97, CO2 25, BUN of 22, creatinine 1.31, glucose 281 . Lactic acid 2.5, calcium 9.7, total bilirubin 0.8, AST 31, ALT 15. IMAGING: CT abdomen and pelvis; no evidence of urolithiasis or obstructive uropathy. ASSESSMENT AND PLAN: The patient is an 82-year-old female. 1. Urinary tract infection. Plan to send urine for culture. Place the patient on broad spectrum an tibiotics and monitor patient closely. 2. Abdominal pain and nausea, etiology unclear. CT, no acute disease seen. Plan to consult GI to e valuate the patient. We will monitor the patient closely. 3. History of hypertension, monitor blood pressures, continue home blood pressure meds. 4. History of diabetes mellitus type 2, monitor blood sugars. We will do insulin sliding scale. 5. Lactic acidosis. Monitor his lactic acid level closely. The case was discussed in detail with the patient.
[2017-07-30] MEDS: Heparin 5,000 UNITS/ML VIAL SC SCH ×3 (08:53→21:02)
[2017-07-30] MEDS: Oxybutynin 5 MG TAB PO SCH ×3 (08:53→20:49)
[2017-07-30] MEDS: Famotidine 20 MG TAB PO SCH ×2 (08:53→20:49)
[2017-07-30] MEDS: HumaLOG 300 UNITS/3 ML VIAL SC PRN ×3 (08:54→17:04)
--- NOTE | 2017-07-30 13:49 | PRG ---
DATE OF SERVICE: 07/30/2017 SUBJECTIVE: The patient is seen and examined at bedside. She is feeling weak and tired. As she cou ld not sleep last night, she got to the room around 4:00 this morning and she did not get much rest. OBJECTIVE: VITAL SIGNS: Blood pressure is 160/58, pulse is 75, temperature is 98.9, respiratory rate is 20 and pulse oximetry is 95% on room air. GENERAL: She looks tired and exhausted. HEENT: Her pupils are responding to light properly. Sclerae is nonicteric. Conjunctivae pinkish. Oral mucosa is somewhat dry. NECK: Supple. No lymphadenopathy. LUNGS: Clear. HEART: S1 and S2 normal. No S3, no S4, no murmur. ABDOMEN: Soft, mildly distended and obese. There is some tenderness in the left side of abdomen. N o guarding. EXTREMITIES: No clubbing, cyanosis or edema. NEUROLOGIC: She is alert and oriented x4. There is no sensory or motor deficit. Cranial nerves are intact. Cerebellar function within normal limits. LABORATORY DATA: Showed a white count of 13.4, hemoglobin of 11.4, hematocrit is 35.5 and platelet c ount is 194. Sodium of 132, potassium 4.2, chloride 101, CO2 of 26, BUN 24 and creatinine 1.18. Gly cemia is ranging from 254-342. Lactic acid is down to 1 and calcium 8.6. Microbiology showing E. co li, which we are awaiting for the final report. Blood cultures, no growth. IMPRESSION AND PLAN: 1. Most likely, urinary tract infection related abdominal pain. The patient is growing E. coli in h er urinalysis. The patient is getting IV antibiotic, which is Zosyn. 2. The patient is going to be seen by Dr. Hardin for GI evaluation, but I do not think this has anythi ng to do with her gastrointestinal system. 3. Acute on chronic kidney disease. 4. Uncontrolled diabetes. Plan is to continue IV antibiotics. Dr. Hardin to evaluate her abdominal pain, start her on small dose of insulin. She is on 15 units of regular before each meal and 40 units of Lantus at night once a d ay. We will continue her DVT prophylaxis with heparin.
--- NOTE | 2017-07-30 18:06 | CON ---
DATE OF CONSULTATION: 07/30/2017 HISTORY OF PRESENT ILLNESS: The patient is an 82-year-old female who was in her normal sta te of health until a week prior to admission when she developed left-sided abdominal pain. She had s ome associated nausea and vomiting. She also noted decreased urine output. She did have some fever and chills. She denies any weight loss, any change in bowel function. She reports the pain has not changed by eating or bowel movements. The patient had frequent urinary tract infections over the las t year. She reports she underwent a colonoscopy 5 years ago that showed only diverticula. PAST MEDICAL HISTORY: Significant for diabetes mellitus, hypertension, chronic obstructive pulmonary disease, chronic back pain and osteoarthritis. PAST SURGICAL HISTORY: Includes a left femur fracture recently, bilateral knee surgeries, bilateral shoulder surgery and hysterectomy. MEDICATIONS: Include tramadol 50 mg p.o. q.4 hours p.r.n., Effexor 25 mg p.o. q. day, Florastor 250 mg p.o. q. day, Ditropan 5 mg p.o. t.i.d., Nitrostat 0.4 mg q.5 minutes p.r.n., lisinop ril 20 mg p.o. at bedtime, insulin, gabapentin 300 mg p.o. at bedtime, Lipitor 20 mg p.o. at bedtime, aspirin 81 mg p.o. q. day and extra strength Tylenol p.r.n. ALLERGIES: Include IBUPROFEN and PROMETHAZINE. SOCIAL HISTORY: She does not smoke or drink. FAMILY HISTORY: Negative for GI or liver disease. REVIEW OF SYSTEMS: Constitutional: Positive for fever or chills. Eyes: No blurred vision or doubl e vision. ENT: No sore throat or earaches. Cardiovascular: No chest pain or palpitations. Gastro intestinal: See above. Genitourinary: No hematuria or dysuria. Musculoskeletal: Positive for chr onic back pain. Positive for joint pain. Skin: No rashes. Neurologic: No numbness or seizure activity. PHYSICAL EXAMINATION: VITAL SIGNS: Temperature 98.9, pulse 75, respiratory rate 20 and blood pressure 116/58. HEENT: Unremarkable. NECK: Supple. CHEST: Clear. CARDIOVASCULAR: Regular rate and rhythm. ABDOMEN: Soft, tender in the left side in both the left upper and left lower abdomen. RECTAL: Deferred. EXTREMITIES: Show some stasis changes. LABORATORY AND IMAGING DATA: Shows a white blood cell count of 13.4, hemoglobin of 11.4 and hematocr it of 35.5. Chemistries shows sodium of 133, chloride 97, BUN 22, creatinine 1.31 and glucose 281. Lactic acid on admission was 2.5. Urinalysis showed trace ketones, large blood, small bilirubin, sma ll leukocyte esterase, 21 and 50 rbc's and greater than 50 wbc's. A blood culture was positive for E . coli. A urine culture also showed E. coli. Previous stool tests from May showed antigen posit grecia, C. diff and toxin negative. Abdominal and pelvic CT showed no kidney stones, no obstruction. T here was some streak artifact from the right hip hardware. No other abnormalities were noted. Addit ionally, there was bilateral perinephric fat stranding. No oral contrast was given. ASSESSMENT: 1. Left-sided abdominal pain - unclear if this is related to the patient's urosepsis or possibly rec ent Clostridium difficile. 2. Diabetes mellitus. 3. Urosepsis. 4. Recurrent urinary tract infections. 5. Obesity. 6. Diabetes. RECOMMENDATIONS: 1. Stool for C. diff. 2. Continue Florastor. 3. No further GI workup until patient's urosepsis is treated. 4. May consider upper endoscopy in 24-48 hours.
[2017-07-30] MEDS ORDERED: Gabapentin 300 MG CAP PO SCH (21:00)
[2017-07-30] MEDS ORDERED: Saccharomyces boulardii 250 MG CAP PO SCH (21:00)
[2017-07-30] MEDS ORDERED: Atorvastatin Calcium 20 MG TAB PO SCH (21:00)
[2017-07-31 01:19] VITALS: BP 141/65; TEMP 99.6
[2017-07-31] MEDS: Piperacillin/Tazobactam 3.375 GM in Sodium Chloride 0.9% 100 ML IVPB SCH (02:54)
[2017-07-31] MEDS ORDERED: Calcium Chloride 1 GM/10 ML Abboject SYRINGE ONE (04:00)
[2017-07-31] MEDS ORDERED: Sodium Bicarb 50 MEQ/50 ML Abboject 8.4% SYRINGE ONE (04:00)
[2017-07-31] MEDS ORDERED: EPINEPHrine 1 MG/10 ML Abboject SYRINGE ONE (04:00)
--- NOTE | 2017-07-31 05:24 | PDOC.EVN ---
Event Note - Event Note Event Note: Rasheed kenny called at 0342 and code team responded immediately and compressions initiated. Multiple rounds of epinephrine given during appropriate time interval. Patient had PEA on monitoring. One amp of bicarb also given. Patient was successfully intubated during resuscitation effort. Family was called within 10-15 min of code. Patient's son, Siva Mathew, stated he was MPOA requested arrest of resuscitation efforts since patient was meant to be a DNR status. Patient had out of hospital DNR. Just after resuscitation ceased, at 0403, patient's granddaughter arrived at scene and also stated patient was meant to be DNR. Questions answered to both son and granddaughter. Review of telemetry showed patient to have a 5 second pause earlier in the night followed by junctional rhythm, bradycardia and eventually cardiac arrest.
--- NOTE | 2017-08-02 13:35 | DS ---
DATE OF ADMISSION: 07/29/2017 DATE OF EXPIRATION: 07/31/2017 DIAGNOSES AT THE TIME OF ADMISSION: 1. Urinary tract infection. 2. Abdominal pain and nausea, etiology unclear. 3. History of hypertension. 4. History of diabetes mellitus type 2. 5. Lactic acidosis. DIAGNOSES AT THE TIME OF : 1. Cardiopulmonary arrest. 2. Urosepsis. 3. Urinary tract infection Escherichia coli. 4. Acute on chronic kidney disease. 5. Uncontrolled diabetes mellitus type 2. CONSULTANTS: Dr. Taj Hardin, Gastroenterology service. HOSPITAL COURSE: The patient was an 82-year-old female who was admitted to the hospital wi th abdominal pain, nausea, and vomiting who also had a past medical history of diabetes mellitus type 2, hypertension, degenerative disk disease, recurrent back pain. Her abdominal pain with nausea and vomiting started approximately 3 days prior to this hospitalization. The pain was located mainly in the left side of the abdomen and was 10/10 on a scale from 1-10 and it was improving with some pain medications. Also, she noticed some decreased urine output for the last few days. She complained ab out some chills and some fever. She denied any dysuria, chest pain, shortness of breath, syncope, pa lpitations, fatigue, headache or dizziness. At the time of admission, her blood pressure was 130/70. She was afebrile and her pulse oximetry was 97%. Her evaluation revealed a white count of 12.3, he moglobin of 13.9, platelet count was 202. BMP showed sodium of 133, potassium 4.5, chloride 97, CO2 25. BUN 22, creatinine 1.31, glucose was 281. Lactic acid was 2.5, and calcium 9.7. Her total bili milner was 0.8, AST 31, ALT was 15. CT of the abdomen and pelvis did not show any evidence of urolith iasis or any obstructive uropathy. Apparently, a urinalysis was done by home health nurse in [facility] and only prior to this emergency room visit/hospitalization. The patient was given one dose of lev ofloxacin in the emergency room and she got admitted to the hospital and placed on Zosyn. Her urine culture grew E. coli, which was resistant to levofloxacin, but was sensitive to Zosyn, which was pipe racillin and tazobactam. Also, she had influenza A and B direct. EIA test done, which was negative for both viruses and she received IV fluids. She was seen by Dr. Hardin for GI evaluation of her abdom inal pain. He felt that this was related to her urosepsis and possibly recent Clostridium difficile infection and he recommended to do the stool for C. difficile and continue Florastor and he did not r ecommend any further GI workup until patient's urosepsis was treated. He entertained constellation o f doing an upper endoscopy in the next 24-48 hours. The next day, her white count was slightly up to 13.4 from 12.3, her creatinine improved to 1.18 from 1.31, but her glycemia was still elevated betwe en 200 and 340. Her lactic acid went down to 1.0. She felt slightly better, but still very weak and tired. Then at night, she went into PEA. The code blue was called. She was successfully intubated , but in approximately 10-15 minutes into the code, his son was contacted who apparently had medical power of corporate associate attorney and he requested to stop the resuscitation process and he said that she was suppose d to be DNR. Apparently, she had 5 second pause soon before she coded, then she went into junctional rhythm and bradycardia and as soon as all efforts of resuscitation were stopped, she passed and she was pronounced at 0403. Later, her body was sent to the home.
--- NOTE | 2017-08-04 09:47 | PQF ---
UZAIR PÉREZ ZBIGNIEW A MD [id number] [facility]286 [id number] CLINICAL DOCUMENTATION CLARIFICATION FORM: POST DISCHARGE Please clarify if documented "Urosepsis" can be further specified. SUMMARY- DIAGNOSES AT TIME OF ; ' 1. Cardiopulmonary arrest. 2. Urosepsis. 3. Urinary Tract Infection Escherichia coli. 4. Acute on chronic kidney disease. "At the time of admission, her blood pressure was 130/70. She was afebrile and her pulse oximetry was 97%. Her evaluation revealed a white count of 12.3, hemoglobin of 13.9, platelet count was 202." "The next day, her white count was slightly up to 13.4 from 12.3, her creatinine improved to 1.18 from 1.31, but her glycemia was still elevated between 200 and 340." Please exercise your independent, professional judgment in responding to the clarification form. Clinical indicators are provided on the bottom of this form for your review. Thank you. Please check appropriate box(s): [ ] Sepsis due to: (Pna, UTI, gangrenous gall bladder, etc.) [ ] Severe sepsis with acute organ dysfunction of: ( Examples: respiratory failure, encephalopathy, acute kidney failure, other) [ ] Urosepsis (Localized infection) without sepsis [ ] Other diagnosis [ ] Unable to determine In addition, please specify: Present on Admission (POA): [ ] Yes [ ] No [ ] Unable to determine CLINICAL INDICATORS - SIGNS / SYMPTOMS / LABS Altered mental status Fever or hypothermia (<96.8 F/36 C or > 100.4 F/38C) Respiratory rate >22/min, Hypoxemia, SBP <100mmHg Metabolic acidosis Lactic Acid >2mmol/L, Increase BUN/Car Pre Cooler, decrease GFR, coag abnormalities, thrombocytopenia-plts <100k Oliguria Shock-hypotension resistant to IV fluid boluses WBC count (>12,000/mm^4 or <4000/mm^3 or 10% neuts, 10% bands) Hyperglycemia in absence of diabetes mellitus Positive blood cultures RISK FACTORS Infection/Bacteremia Pneumonia, UTI, infected wound, gangrenous gall bladder Diabetes or Cancer Surgery / surgical instrumentation / trauma Ruptured/perforated bowel, ruptured appendix Immunosuppression Advancing Age TREATMENTS: Initiation Sepsis Protocol ICU Daily CBC Blood/sputum/wound cultures ID Consult IV antibiotics - broad spectrum IV fluids Vasopressors, meds (This form is maintained as a part of the permanent medical record) 2014 [employer] All Rights Reserved WE[employer] [email or web address] [phone] CLAUDY
== END 2017-07-31 04:03 | disposition expired | DRG 690 ==
LOC: ERS 18:43 → 2NO 21:40
PROVIDERS: ADMIT Internal Medicine; ATTEND Internal Medicine
PROC: 5A12012 Performance of Cardiac Output, Single, Manual (ICD-10-PCS; principal; 2017-07-31)
PROC: 0BH17EZ Insertion of Endotracheal Airway into Trachea, Via Natural or Artificial Opening (ICD-10-PCS; 2017-07-31)
DX: N39.0 Urinary tract infection, site not specified (principal); N17.9 Acute kidney failure, unspecified; E87.2 Acidosis; E11.22 Type 2 diabetes mellitus with diabetic chronic kidney disease; E11.65 Type 2 diabetes mellitus with hyperglycemia; I46.9 Cardiac arrest, cause unspecified; I12.9 Hypertensive chronic kidney disease with stage 1 through stage 4 chronic kidney disease, or unspecified chronic kidney disease; B96.20 Unspecified Escherichia coli [E. coli] as the cause of diseases classified elsewhere; Z16.23 Resistance to quinolones and fluoroquinolones; N18.9 Chronic kidney disease, unspecified; Z66 Do not resuscitate; E66.9 Obesity, unspecified; Z68.38 Body mass index [BMI] 38.0-38.9, adult
CPT/HCPCS: 36415; 36416; 71010; 74177; 80048; 80053; 83605; 85025; 87040; 87077; 87149; 87186; 94760; 96361; 96365; 96366; A4216; J0171; J1644; J1956; J2405; J2543; J7050